=== PATIENT | male | born 1965 | race Caucasian/White ===

== ENCOUNTER → 2016-10-07 | Outpatient (CLI) | payer MEDICARE, MEDICAID | LOC: M RAD 10:41 | PROVIDERS: ATTEND Hospitalist | DX: M54.2 Cervicalgia (principal) ==

== ENCOUNTER → 2017-02-22 | Outpatient (CLI) | payer MEDICARE, MEDICAID ==
--- NOTE | 2017-02-22 18:14 | REP ---
Cervical spine, complete: 02/22/2017. Comparison: 04/26/2016 Clinical history: Neck pain. Findings: Seven views are provided. There is cervical spondylosis, greatest at C6-7 with slight disc space narrowing and anterior osteophytes. Lesser disc space narrowing at C4-5 with anterior osteophytes at C3-4 and C5-6 noted. No compression deformity. The flexion and extension views show adequate range of motion and no instability at C1-2. Open-mouth view shows dens and lateral masses aligning normally. The patient is edentulous. Foramina show encroachment at C6-7 on the right due to facet hypertrophy, marginally adequate on the left at the same level, otherwise intact. Impression: 1. Cervical spondylosis as described, not much changed since 2016 with adequate range of motion and no instability. It is greatest at C6-7 with anterior and posterior osteophytes with disc space narrowing. 2. Foraminal encroachment on the right at C6-7, borderline on the left at that same level due to uncinate spurs. Signed by Cr Aguilera MD 02/22/2017 07:12 P
== END ==
LOC: M RAD 16:38
PROVIDERS: ATTEND Hospitalist
DX: M47.892 Other spondylosis, cervical region (principal); M46.02 Spinal enthesopathy, cervical region

== ENCOUNTER → 2017-11-26 | Outpatient (CLI) | payer MEDICARE, MEDICAID | LOC: M RAD 11:47 | DX: M54.2 Cervicalgia (principal) ==

== ENCOUNTER → 2018-01-13 | Outpatient (CLI) | payer MEDICARE, MEDICAID | LOC: M RAD 07:29 | DX: R22.32 Localized swelling, mass and lump, left upper limb (principal) | CPT/HCPCS: 73223 ==

== ENCOUNTER → 2018-03-05 | Outpatient (CLI) | payer MEDICARE, MEDICAID ==
[2018-03-05 17:01] LABS: C REACTIVE PROTEIN QUANTITATIV < 0.30 MG/DL (0.00-0.30)
[2018-03-05 17:01] LABS: RHEUMATOID FACTOR QUANT < 10.0 IU/ML (<15.0)
[2018-03-05 17:08] LABS: ERYTHROCYTE SEDIMENTATION RATE 1 mm/hr (0-20)
[2018-03-10 00:07] LABS: ANTI DOUBLE STRAND-DNA AB <1 IU/mL (0-9); ANTI RIBOSOMAL ANTIBODIES <0.2 AI (0.0-0.9); ANTINUCLEAR ANTIBODIES DIRECT Positive (Negative); HLA-B27 Negative (.); RNP ANTIBODIES 1.2 AI (0.0-0.9); SJOGREN'S ANTI SS-A <0.2 AI (0.0-0.9); SJOGREN'S ANTI SS-B 0.3 AI (0.0-0.9); SMITH ANTIBODIES <0.2 AI (0.0-0.9)
== END ==
LOC: M ADAMS 09:10
DX: M13.0 Polyarthritis, unspecified (principal); M54.2 Cervicalgia
CPT/HCPCS: 83516

== ENCOUNTER → 2018-03-17 | Outpatient (CLI) | payer MEDICARE, MEDICAID | LOC: M PLARAD 08:51 | DX: R22.33 Localized swelling, mass and lump, upper limb, bilateral (principal) | CPT/HCPCS: 73223 ==

== ENCOUNTER → 2018-04-28 | Outpatient (CLI) | payer MEDICARE, MEDICAID | LOC: M PLARAD 08:01 | DX: M50.21 Other cervical disc displacement, high cervical region (principal); M50.222 Other cervical disc displacement at C5-C6 level; M50.221 Other cervical disc displacement at C4-C5 level; M50.223 Other cervical disc displacement at C6-C7 level; M50.23 Other cervical disc displacement, cervicothoracic region | CPT/HCPCS: 72141 ==

== ENCOUNTER → 2019-02-01 | Outpatient (REF) | payer MEDICARE, MEDICAID ==
[2019-02-04 00:06] LABS: ANA (HEP2) Negative (.)
== END ==
LOC: M SFHCADAM 11:41
PROVIDERS: ATTEND Family Medicine
DX: M13.0 Polyarthritis, unspecified (principal)

== ENCOUNTER → 2020-01-02 | Outpatient (CLI) | payer MEDICARE, MEDICAID ==
[~2020-01-02] MED LIST: ATOR40TA75 PO; DITR5TAB PO; GABA800T4 PO; HYDR-3715 PO; KEFL500C17 PO; MOBI4TAB PO; TIZA4CAP PO
--- NOTE | 2020-01-02 16:55 | REP ---
REASON: Tobacco abuse. The only prior for comparison is a CT angio chest of 12/17/2012. As per the lung screening protocol, only lung window images were sent to the read station for interpretation. In the right middle lobe, there is a pleural-based, unchanged 5-mm sized nodule. No new abnormal nodules, masses, or opacities have developed. IMPRESSION: Stable CT examination of the chest. Lung-RADS category 2. Electronically Signed by Corby Grady DO 01/02/2020 05:07 P
== END ==
LOC: M RAD 13:13
PROVIDERS: ATTEND Family Medicine
DX: Z12.2 Encounter for screening for malignant neoplasm of respiratory organs (principal); Z87.891 Personal history of nicotine dependence

== ENCOUNTER 2020-01-11 05:29 | Emergency (ER) | payer MEDICARE, MEDICAID ==
[~2020-01-11] VITALS: Ht 154.9 cm; Wt 73.7 kg
[2020-01-11] MEDS ORDERED: GABA800T4 PO (05:40)
[2020-01-11] MEDS ORDERED: HYDR-3715 PO (05:40)
[2020-01-11] MEDS ORDERED: DITR5TAB PO (05:40)
[2020-01-11] MEDS ORDERED: ATOR40TA75 PO (05:40)
[2020-01-11] MEDS ORDERED: TIZA4CAP PO (05:40)
[2020-01-11] MEDS ORDERED: MOBI4TAB PO (05:40)
[2020-01-11] MEDS ORDERED: KEFL500C17 PO (07:37)
[2020-01-11 07:41] VITALS: BP 138/86
--- NOTE | 2020-01-11 08:00 | REP ---
Left forearm: Two views. History: Suspected wood splinter foreign body. 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 No fracture or subluxation is seen. There is focal soft tissue swelling at the medial aspect of the forearm on the AP view but no opaque foreign body is appreciated. Electronically Signed by Robi Monk MD 01/11/2020 07:51 A
== END 2020-01-11 08:00 | disposition home or self-care (01) ==
LOC: M ED 05:29
DX: S51.842A Puncture wound with foreign body of left forearm, initial encounter (principal); W45.8XXA Other foreign body or object entering through skin, initial encounter; Y92.018 Other place in single-family (private) house as the place of occurrence of the external cause; Y93.9 Activity, unspecified; Y99.9 Unspecified external cause status; F17.210 Nicotine dependence, cigarettes, uncomplicated; Z18.33 Retained wood fragments

== ENCOUNTER 2020-03-04 11:15 | Day surgery (SDC) | payer MEDICARE, MEDICAID ==
[~2020-03-04 11:15] MED LIST changes: +propofoL 200 MG/20 ML VIAL ONE
[2020-03-04] MEDS ORDERED: propofoL 200 MG/20 ML VIAL ONE (12:04)
--- NOTE | 2020-04-02 11:34 | ROOR ---
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 Procedure: Pre-Anesthesia Assessment: - The heart rate, respiratory rate, oxygen saturations, blood pressure, adequacy of pulmonary ventilation, and response to care were monitored throughout the procedure. The Colonoscope was introduced through the anus and advanced to the terminal ileum, with identification of the appendiceal orifice and IC valve. The colonoscopy was performed with difficulty due to inadequate bowel prep. The patient tolerated the procedure well. The quality of the bowel preparation was inadequate. Findings: The perianal and digital rectal examinations were normal. The colon is grossly normal without large tumors or obstructing lesions. Unable to perform adequate detail examination. Small lesions may have been missed. Two sessile polyps were found in the splenic flexure. The polyps were small in size. These polyps were removed with a cold snare. Resection and retrieval were complete. Impression: - Preparation of the colon was inadequate. - The colon is grossly normal without large tumors or obstructing lesions. Unable to perform adequate detail examination. Small lesions may have been missed. - Two small polyps at the splenic flexure, removed with a cold snare. Resected and retrieved. Recommendation: - Repeat colonoscopy in 1 year because the bowel preparation was poor. - (Rec alternate colon preparation for next colonoscopy) Chinmay BACON MD 03/04/2020 12:13:37 PM Number of Addenda: 0 Note Initiated On: 03/04/2020 10:33 AM Estimated Blood Loss: Estimated blood loss: none.
== END 2020-03-04 12:55 | disposition home or self-care (01) ==
LOC: M SDC 11:15
PROVIDERS: ATTEND Internal Medicine Gastroenterology
DX: Z12.11 Encounter for screening for malignant neoplasm of colon (principal); D12.3 Benign neoplasm of transverse colon; Z79.82 Long term (current) use of aspirin; Z79.891 Long term (current) use of opiate analgesic; Z79.899 Other long term (current) drug therapy; F17.210 Nicotine dependence, cigarettes, uncomplicated

== ENCOUNTER 2020-07-01 14:26 | Emergency (ER) | payer MEDICARE, MEDICAID ==
[~2020-07-01] VITALS: Ht 154.9 cm; Wt 77.3 kg
[~2020-07-01 14:26] MED LIST changes: -propofoL 200 MG/20 ML VIAL ONE
[2020-07-01] MEDS ORDERED: dexameTHASONE 20MG/5ML VIAL (J1100 PER 1MG) IV ONE (15:00)
[2020-07-01] MEDS: COMBIVENT RESPIMAT 100-20MCG INHALER 4GM INH SCH ×3 (15:23→15:47)
[2020-07-01 15:44] LABS: INR 1.03; PROTHROMBIN TIME 13.7 SECONDS (12.5-14.3)
--- NOTE | 2020-07-01 15:51 | REP ---
INDICATION: DYSPNEA/COUGH. COMPARISON: 04/26/2016. TECHNIQUE: SINGLE PORTABLE AP VIEW OF THE CHEST WAS PERFORMED. FINDINGS: THERE IS NO ACUTE INFILTRATE OR PULMONARY EDEMA. LUNGS ARE CLEAR. HEART IS NOT SIGNIFICANTLY ENLARGED. MEDIASTINAL SILHOUETTE IS UNREMARKABLE. THE VISUALIZED OSSEOUS STRUCTURES ARE INTACT. IMPRESSION: NO ACUTE PULMONARY DISEASE. <Electronically signed by Jim Winn > 07/01/20 [id number]
[2020-07-01 16:10] LABS: ALBUMIN 3.5 GM/DL (3.2-5.2); ALT/SGPT 22 U/L (12-78); BILIRUBIN,DIRECT < 0.1 MG/DL (0.0-0.2); BILIRUBIN,TOTAL 0.5 MG/DL (0.2-1.0); BLOOD UREA NITROGEN 17 MG/DL (7-18); CALCIUM LEVEL 8.6 MG/DL (8.5-10.1); CARBON DIOXIDE LEVEL 24 MEQ/L (21-32); CHLORIDE LEVEL 109 MEQ/L (98-107); CK-MB VALUE MASS < 1.0 NG/ML (<3.6); CPK CREATINE PHOSPHOKINASE 246 U/L (39-308); CREATININE FOR GFR 1.04 MG/DL (0.70-1.30); GLOMERULAR FILTRATION RATE > 60.0 (>56); GLUCOSE, FASTING 102 MG/DL (70-100); MB/CK RELATIVE INDEX 0.41 (< OR =4); NT-PRO BNP 64 PG/ML (<125); POTASSIUM SERUM 4.4 MEQ/L (3.5-5.1); SODIUM LEVEL 139 MEQ/L (136-145); TOTAL PROTEIN 6.9 GM/DL (6.4-8.2); TROPONIN I < 0.02 NG/ML (< 0.10)
[2020-07-01 16:26] LABS: BASO # 0.1 10^3/uL (0.0-0.2); BASO % 0.8 % (0.0-1.0); EOS % 7.2 % (0.0-3.0); HEMOGLOBIN 15.5 g/dl (13.5-17.5); LYMPH # 4.7 10^3/uL (1.5-5.0); LYMPH % 33.3 % (24.0-44.0); MEAN CORPUSCULAR HEMOGLOBIN 30.1 pg (27.0-33.0); MEAN CORPUSCULAR HGB CONC 33.7 g/dl (32.0-36.5); MEAN CORPUSCULAR VOLUME 89.3 fl (80.0-96.0); MONO % 7.3 % (0.0-5.0); NEUTROPHILS # 7.2 10^3/uL (1.5-8.5); PLATELET COUNT, AUTOMATED 273 10^3/uL (150-450); RED BLOOD COUNT 5.15 10^6/uL (4.30-6.10); WHITE BLOOD COUNT 14.2 10^3/uL (4.0-10.0)
[2020-07-01] MEDS ORDERED: COMBAER6 INH (17:12)
[2020-07-01] MEDS ORDERED: PRED20TA PO (17:13)
[2020-07-01 17:36] VITALS: BP 125/80
--- NOTE | 2020-07-02 08:34 | ECGEPIP ---
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
== END 2020-07-01 17:37 | disposition home or self-care (01) ==
LOC: M ED 14:26 → EDBD 14:26 → EDSEX 14:26 → M ED 17:37
DX: J44.9 Chronic obstructive pulmonary disease, unspecified (principal); G89.29 Other chronic pain; M54.2 Cervicalgia; M13.80 Other specified arthritis, unspecified site; F17.200 Nicotine dependence, unspecified, uncomplicated; Z79.899 Other long term (current) drug therapy
CPT/HCPCS: 71045; 80048; 80076; 82550; 82553; 83880; 84443; 84484; 85025; 85610; 93005; 93041; 94640; 94760; 96374; 99284; J1100

== ENCOUNTER → 2022-01-07 | Outpatient (REF) | payer MEDICARE, MEDICAID ==
[~2022-01-07] MED LIST changes: +COMBAER6 INH; +PRED20TA PO
== END ==
LOC: M SFHCDERM 10:15
PROVIDERS: ATTEND Family Medicine
DX: L73.9 Follicular disorder, unspecified (principal)

== ENCOUNTER → 2022-01-18 | Outpatient (REF) | payer MEDICARE, MEDICAID ==
[2022-01-18 14:27] LABS: ALBUMIN 3.5 GM/DL (3.2-5.2); ALT/SGPT 17 U/L (12-78); BILIRUBIN,TOTAL 0.4 MG/DL (0.2-1.0); BLOOD UREA NITROGEN 13 MG/DL (7-18); CALCIUM LEVEL 9.5 MG/DL (8.5-10.1); CARBON DIOXIDE LEVEL 26 MEQ/L (21-32); CHLORIDE LEVEL 110 MEQ/L (98-107); CHOLESTEROL LEVEL 120 MG/DL (<200); CREATININE FOR GFR 1.02 MG/DL (0.70-1.30); GLOMERULAR FILTRATION RATE > 60.0 (>56); GLUCOSE, FASTING 109 MG/DL (70-100); HDL CHOLESTEROL 43 MG/DL (>40); LDL CHOLESTEROL 67 MG/DL (<100); NON-HDL-C 77 MG/DL; POTASSIUM SERUM 4.7 MEQ/L (3.5-5.1); SODIUM LEVEL 143 MEQ/L (136-145); TOTAL PROTEIN 6.6 GM/DL (6.4-8.2); TRIGLYCERIDES LEVEL 49 MG/DL (<150)
[2022-01-18 15:00] LABS: HEMOGLOBIN A1c 5.5 %
== END ==
LOC: M SFHCADAM 07:13
PROVIDERS: ATTEND Student in an Organized Health Care Education/Training Program
DX: E78.5 Hyperlipidemia, unspecified (principal); Z13.1 Encounter for screening for diabetes mellitus; Z12.5 Encounter for screening for malignant neoplasm of prostate; Z79.899 Other long term (current) drug therapy
CPT/HCPCS: 80053; 80061; 83036; G0103

== ENCOUNTER → 2022-04-19 | Outpatient (CLI) | payer MEDICARE, MEDICAID | LOC: M RAD 06:45 | PROVIDERS: ATTEND Student in an Organized Health Care Education/Training Program | DX: Z12.2 Encounter for screening for malignant neoplasm of respiratory organs (principal); F17.210 Nicotine dependence, cigarettes, uncomplicated ==

== ENCOUNTER → 2023-09-15 | Outpatient (REF) | payer MEDICARE, MEDICAID | LOC: M SFHCPLAZ 16:48 | PROVIDERS: ATTEND Family Medicine | DX: M54.2 Cervicalgia (principal) ==

== ENCOUNTER → 2024-05-09 | Outpatient (CLI) | payer MEDICARE, MEDICAID ==
[~2024-05-09] MED LIST changes: +GABA-1635 PO; -GABA800T4 PO
== END ==
LOC: M RAD 16:59
PROVIDERS: ATTEND Student in an Organized Health Care Education/Training Program
DX: Z12.2 Encounter for screening for malignant neoplasm of respiratory organs (principal); F17.218 Nicotine dependence, cigarettes, with other nicotine-induced disorders

== ENCOUNTER → 2025-02-18 | Outpatient (REF) | payer MEDICARE, MEDICAID | LOC: M SFHCPLAZ 19:09 | PROVIDERS: ATTEND Family Medicine | DX: Z53.9 Procedure and treatment not carried out, unspecified reason (principal) ==

== ENCOUNTER → 2025-05-13 | Outpatient (CLI) | payer MEDICARE | LOC: M RAD 08:03 | DX: Z87.891 Personal history of nicotine dependence (principal) ==

== ENCOUNTER → 2025-05-23 | Outpatient (REF) | payer MEDICARE, MEDICAID | LOC: M SFHCPLAZ 22:23 | PROVIDERS: ATTEND Student in an Organized Health Care Education/Training Program | DX: Z13.0 Encounter for screening for diseases of the blood and blood-forming organs and certain disorders involving the immune mechanism (principal); Z13.29 Encounter for screening for other suspected endocrine disorder; Z11.59 Encounter for screening for other viral diseases; Z13.1 Encounter for screening for diabetes mellitus; Z11.4 Encounter for screening for human immunodeficiency virus [HIV]; Z12.11 Encounter for screening for malignant neoplasm of colon; E78.5 Hyperlipidemia, unspecified; Z53.9 Procedure and treatment not carried out, unspecified reason ==

== ENCOUNTER → 2025-05-24 | Outpatient (REF) | payer MEDICARE, MEDICAID | LOC: M SFHCPLAZ 23:32 | PROVIDERS: ATTEND Student in an Organized Health Care Education/Training Program | DX: Z12.11 Encounter for screening for malignant neoplasm of colon (principal) ==

== ENCOUNTER → 2025-05-30 | Outpatient (REF) | payer MEDICARE, MEDICAID | LOC: M SFHCPLAZ 18:06 | PROVIDERS: ATTEND Student in an Organized Health Care Education/Training Program | DX: Z12.11 Encounter for screening for malignant neoplasm of colon (principal) ==